=== PATIENT | male | born 1955 | race Caucasian/White ===

== ENCOUNTER 2018-09-17 05:19 | Emergency (ER) | payer OTHER ==
[2018-09-17] MEDS ORDERED: TRANDATE 20 MG/5 ML SYRINGE IV ONE (05:56)
[2018-09-17] MEDS ORDERED: Zofran 4 MG/2 ML VIAL ONE (05:56)
[2018-09-17] MEDS ORDERED: Sodium Chloride 0.9% 1000 ML 1,000 ML ONE (05:57)
[2018-09-17] MEDS ORDERED: SUBLIMAZE 100 MCG/2 ML ONE (05:57)
[2018-09-17] MEDS: Sodium Chloride 0.9% 1000 ML 1,000 ML IV SCH (05:59)
[2018-09-17] MEDS: SUBLIMAZE 100 MCG/2 ML IV ONE (05:59)
[2018-09-17] MEDS: TRANDATE 20 MG/5 ML SYRINGE IV ONE ×2 (06:00→07:08)
[2018-09-17] MEDS: Zofran 4 MG/2 ML VIAL IV ONE (06:00)
[2018-09-17 06:03] LABS: BASOPHIL % 0.2 % (0.0-0.4); Basophil (Absolute #) 0.03 (0-0.4); Eosinophil (Absolute #) 0.15 (0-0.5); Granulocytes % 71.5 % (36.0-66.0); Hematocrit 42.2 % (42-50); Mean Cell Volume 87.9 fl (78-100); Mean Corpuscular Hemoglobin 31.3 pg (26-32); Mean Corpuscular Hgb Concent. 35.5 g/dl (32-36); Mean Platelet Volume 8.5 fl (6-9.5); Monocyte (Absolute #) 1.34 (0.0-1.3); Monocytes % 9.3 % (0.0-12.0); Platelet Count 243 K/mm3 (150-450); Red Cell Distribution Width 13.5 % (11.5-14.0); White Blood Count 14.4 K/mm3 (4.0-10.5)
--- NOTE | 2018-09-17 06:05 | ERPHSYRPT ---
- History of Present Illness Source: patient Patient Subjective Stated Complaint: pt c/o nose bleed from left nostril x 1 hour. pt c/o accomanying left ear pain x 3 hours. pt states he has hx of nose bleeds approx 30 years ago for which he had sinus surgery and has not has nosebleeds since. pt denies taking blood thinners, pt denies hx of htn Triage Nursing Assessment: [place]/warm/dry, resp easy, steady gait, a&ox4, hypertensive, active bleeding from left nostril, clamp applied. Timing/Duration: abrupt onset Severity: severe ENT Location: nose Prearrival Treatment: over the counter meds Modifying Factors: Improves With: nothing Associated Symptoms: ear pain (L), headache Hx Tetanus, Diphtheria Vaccination/Date Given: No Hx Influenza Vaccination/Date Given: No Hx Pneumococcal Vaccination/Date Given: No Immunizations Up to Date: No <RENNY HACKETT - Last Filed: 09/17/18 06:21> <ROB POST - Last Filed: 09/17/18 07:35> - History of Present Illness Time Seen by Provider: 09/17/18 05:45 Physician History: PATIENT COMPLAINS OF INCREASING LEFT EARACHE OVER THE PAST 3 DAYS, MARKED DISCOMFORT OVER THE PAST 3 HOURS ASSOCIATED WITH A SEVERE LEFT SIDED NOSE BLEED 1 HOUR PRIOR TO ARRIVAL. HAS A HISTORY OF SINUS SURGERY 30 YEARS. PATIENT ALSO COMPLAINS OF HAVING A LEFT SIDED HEADACHE. DENIES BLURRED VISION AND PHOTOPHOBIA. (RENNY HACKETT) Allergies/Adverse Reactions: codeine Allergy (Verified 09/17/18 05:27) erythromycin base Allergy (Verified 09/17/18 05:27) - Review of Systems Constitutional: No Fever, No Chills Eyes: No Symptoms Ears, Nose, & Throat: Ear Pain, Other (LEFT SIDED NOSE BLEED) Respiratory: No Cough, No Dyspnea Cardiac: No Symptoms, No Chest Pain, No Edema, No Syncope Abdominal/Gastrointestinal: No Symptoms, No Abdominal Pain, No Nausea, No Vomiting, No Diarrhea Genitourinary Symptoms: No Symptoms, No Dysuria Musculoskeletal: No Symptoms, No Back Pain, No Neck Pain Skin: No Rash Neurological: No Dizziness, No Focal Weakness, No Sensory Changes Psychological: No Symptoms Endocrine: No Symptoms Hematologic/Lymphatic: No Symptoms Immunological/Allergic: No Symptoms All Other Systems: Reviewed and Negative <RENNY HACKETT - Last Filed: 09/17/18 06:21> - Past Medical History Cardiac History: High Cholesterol - Past Surgical History Past Surgical History: Yes Gastrointestinal: Appendectomy - Social History Smoking Status: Former smoker Exposure to second hand smoke: No Drug Use: none Patient Lives Alone: Yes <RENNY HACKETT - Last Filed: 09/17/18 06:21> - Physical Exam General Appearance: mild distress Eye Exam: bilateral eye: normal inspection, PERRL, EOMI Ear Exam: left ear: TM red Nasal Exam: active bleeding (MARKED LEFT NARES) Throat Exam: normal, pharynx normal Neck Exam: normal inspection, non-tender, supple Cardiovascular/Respiratory Exam: chest non-tender, normal breath sounds, tachycardia Abdominal Exam: hernia, spleenomegaly Neurologic Exam: alert, oriented x 3 SpO2 Interpretation: normal SpO2: 95 <RENNY HACKETT - Last Filed: 09/17/18 06:21> - Nursing Vital Signs Nursing Vital Signs: Initial Vital Signs Temperature 98.2 F 09/17/18 05:29 Pulse Rate 102 H 09/17/18 05:29 Respiratory Rate 16 09/17/18 05:29 Blood Pressure 193/106 09/17/18 05:29 O2 Sat by Pulse Oximetry 95 09/17/18 05:29 Pain Scale Pain Intensity 10 Ordered Tests: Active Orders 24 hr Category Date Time 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 [employer]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 Care 09/17/18 05:48 Active EKG-ER Only STAT Care 09/17/18 05:47 Active HEAD WITHOUT CONTRAST [CT] Stat Exams 09/17/18 06:05 Taken BMP Stat Lab 09/17/18 05:59 Completed CBC W DIFF Stat Lab 09/17/18 05:59 Completed PROTIME WITH INR Stat Lab 09/17/18 05:59 Completed Medication Summary Generic Name Dose Route Start Last Admin Trade Name Freq PRN Reason Stop Dose Admin Sodium Chloride 1,000 mls @ 150 mls/hr 09/17/18 06:00 09/17/18 05:59 Sodium Chloride 0.9% 1000 Ml IV 10/17/18 05:59 150 mls/hr .[id number] VANDA Administration Discontinued Medications Generic Name Dose Route Start Last Admin Trade Name Freq PRN Reason Stop Dose Admin Fentanyl Citrate 100 mcg 09/17/18 05:53 09/17/18 05:59 Sublimaze 100 Mcg/2 Ml IV 09/17/18 05:54 100 mcg STAT ONE Administration Fentanyl Citrate Confirm 09/17/18 05:57 Sublimaze 100 Mcg/2 Ml Administered 09/17/18 05:58 Dose 100 mcg .ROUTE .STK-MED ONE Ceftriaxone Sodium/Dextrose 1 g in 50 mls @ 100 mls/hr 09/17/18 06:04 06:35 Rocephin 1 Gm-D5w 50 Ml Bag IV 09/17/18 06:33 100 mls/hr STAT STA Administration Ceftriaxone Sodium/Dextrose Confirm 09/17/18 06:34 Rocephin 1 Gm-D5w 50 Ml Bag Administered 09/17/18 06:35 Dose 1 g in 50 mls @ ud IV .STK-MED ONE Labetalol HCl 15 mg 09/17/18 05:50 09/17/18 07:08 Trandate 20 Mg/5 Ml Syringe IV 09/17/18 05:51 Not Given STAT ONE Labetalol HCl 10 mg 09/17/18 05:52 09/17/18 06:00 Trandate 20 Mg/5 Ml Syringe IV 09/17/18 05:53 10 mg STAT ONE Administration Labetalol HCl Confirm 09/17/18 05:56 Trandate 20 Mg/5 Ml Syringe Administered 09/17/18 05:57 Dose 20 mg IV .STK-MED ONE Ondansetron HCl 4 mg 09/17/18 05:52 09/17/18 06:00 Zofran 4 Mg/2 Ml Vial IV 09/17/18 05:53 4 mg STAT ONE Administration Ondansetron HCl Confirm 09/17/18 05:56 Zofran 4 Mg/2 Ml Vial Administered 09/17/18 05:57 Dose 4 mg .ROUTE .STK-MED ONE Lab/Rad Data: Laboratory Result Diagrams 09/17/18 05:59 09/17/18 05:59 Laboratory Results 09/17/18 09/17/18 09/17/18 Range/Units 05:59 05:59 05:59 WBC 14.4 H (4.0-10.5) K/mm3 RBC 4.80 (4.1-5.6) M/mm3 Hgb 15.0 (12.5-18.0) gm/dl Hct 42.2 (42-50) % MCV 87.9 (78-100) fl MCH 31.3 (26-32) pg MCHC 35.5 (32-36) g/dl RDW 13.5 (11.5-14.0) % Plt Count 243 (150-450) K/mm3 MPV 8.5 (6-9.5) fl Gran % 71.5 H (36.0-66.0) % Eos # (Auto) 0.15 (0-0.5) Absolute Lymphs (auto) 2.60 (1.0-4.6) Absolute Monos (auto) 1.34 H (0.0-1.3) Lymphocytes % 18.0 L (24.0-44.0) % Monocytes % 9.3 (0.0-12.0) % Eosinophils % 1.0 (0.00-5.0) % Basophils % 0.2 (0.0-0.4) % Absolute Granulocytes 10.30 H (1.4-6.9) Basophils # 0.03 (0-0.4) PT 14.0 H (8.83-12.87) SECONDS INR 1.20 (0.8-3.0) Sodium 141 (137-145) mmol/L Potassium 3.6 (3.5-5.1) mmol/L Chloride 105 (98-107) mmol/L Carbon Dioxide 22 (22-30) mmol/L Anion Gap 17.3 H (5-15) MEQ/L BUN 9 (9-20) mg/dL Creatinine 0.83 (0.66-1.25) mg/dL Estimated GFR > 60.0 ML/MIN Glucose 106 (74-106) mg/dL Calcium 9.1 (8.4-10.2) mg/dL <RENNY HACKETT - Last Filed: 09/17/18 06:21> - Progress Counseled pt/family regarding: lab results, diagnosis, need for follow-up, rad results <ROB POST - Last Filed: 09/17/18 07:35> - Progress Progress Note: 09/17/18 06:35 IV NORMAL SALINE 150ML/HR, INITIALLY HYPERTENSIVE BP 193/106 P-102, IMPROVED TO BP 150/82, P-91 FOLLOWED BY ADMINISTRATION LABETOLOL 10MG, ZOFRAN 4MG, FENTANYL 100MCG AND ROCEPHIN 1GM IVPB (RENNY HACKETT) 09/17/18 07:25 ct scan head-sinusitis (ROB POST) <RENNY HACKETT - Last Filed: 09/17/18 06:21> - Departure Departure Disposition: Home Critical Care Time: No <ROB POST - Last Filed: 09/17/18 07:35> - Departure Clinical Impression: Hypertension, Sinusitis, Otitis media Condition: Stable Additional Instructions: take medications as prescribed. follow up with primary doctor for further management Prescriptions: Amoxicillin 500 mg Cap [Amoxil 500 mg] 500 mg PO TID #30 capsule Metoprolol Tartrate 50 mg [Lopressor 50 MG] 25 mg PO BID #20 tablet Prednisone 10 mg [Deltasone 10 mg] 10 mg PO TID #12 tablet
[2018-09-17 06:11] LABS: INR 1.2 (0.8-3.0)
[2018-09-17 06:15] LABS: ANION GAP 17.3 MEQ/L (5-15); BLOOD UREA NITROGEN 9 mg/dL (9-20); CHLORIDE 105 mmol/L (98-107); Calcium 9.1 mg/dL (8.4-10.2); Carbon Dioxide 22 mmol/L (22-30); Creatinine 1 0.83 mg/dL (0.66-1.25); Glucose 106 mg/dL (74-106); Potassium 3.6 mmol/L (3.5-5.1); SODIUM 141 mmol/L (137-145)
[2018-09-17] MEDS ORDERED: ROCEPHIN 1 Gm-D5w 50 ml Bag** 1 G/50 ML IVPB IV ONE (06:34)
[2018-09-17] MEDS: ROCEPHIN 1 Gm-D5w 50 ml Bag** 1 G/50 ML IVPB IV STA (06:35)
[2018-09-17] MEDS ORDERED: NORCO 5/325 MG ONE (07:35)
[2018-09-17] MEDS ORDERED: Hydromorphone 1 mg/ml Ampule ONE (07:41)
[2018-09-17] MEDS: Hydromorphone 1 mg/ml Ampule IV ONE (07:42)
[2018-09-17] MEDS: NORCO 5/325 MG PO ONE (07:48)
[2018-09-17 07:51] VITALS: BP 136/82; PULSE 77; O2SAT 94
[2018-09-17] MEDS ORDERED: NEOSYNEPHRINE 0.5% NASAL SPRAY/DROPS ONE (08:05)
[2018-09-17] MEDS: NEOSYNEPHRINE 0.5% NASAL SPRAY/DROPS NS ONE (08:34)
--- NOTE | 2018-09-17 08:57 | XRAY ---
Indication: Headache and nosebleed. Multiple contiguous axial images obtained through the head without contrast. Comparison: None. Age-appropriate global atrophy and minimal periventricular degenerative micro-ischemia. No acute intracranial hemorrhage, abnormal extra-axial fluid collection, or mass effect. Fourth ventricle is midline without hydrocephalus. Oakley-white matter differentiation preserved. Bony calvarium intact. Left nasal bone demonstrates chronic appearing bony defect. Partial opacification of both ethmoid sinuses and left mastoid air cells with tiny fluid leveling in the left sphenoid sinus. Impression: 1. Nonacute senile brain. 2. Incidental paranasal sinus opacification and partial opacification of the left mastoid air cells both presumed inflammatory. Comment: Preliminary interpretation was made by [facility]. No discrepancy. CT DI is 67.80
== END 2018-09-17 08:34 | disposition home or self-care (01) ==
LOC: ED 05:19
DX: I10 Essential (primary) hypertension (principal); J32.9 Chronic sinusitis, unspecified; H66.90 Otitis media, unspecified, unspecified ear; Z79.899 Other long term (current) drug therapy; E78.00 Pure hypercholesterolemia, unspecified
CPT/HCPCS: 36415; 70450; 80048; 85025; 85610; 93005; 93041; 96360; 96361; 96365; 96374; 96375; 99285; J0696; J1170; J2405; J3010; A9270-GY